=== PATIENT | female | born 1940 | race Caucasian/White ===

== ENCOUNTER 2022-12-24 08:06 | Outpatient (OUT) | payer MEDICARE, SELFPAY ==
[2022-12-24 08:59] LABS: Basophils Absolute Auto 0.1 10^3/uL (0.0-0.1); Basophils Percent Auto 0.7 % (0.2-2.0); Eosinophils Absolute Auto 0.3 10^3/uL (0.0-0.7); Eosinophils Percent Auto 3.8 % (0.9-7.0); Hematocrit 30.1 % (36.0-48.0); Hemoglobin 9.9 g/dL (12.0-16.0); Immature Granulocytes Abs Auto 0.02 10^3/uL (0.00-0.03); Immature Granulocytes Pct Auto 0.3 % (0.0-0.5); Mean Corpuscular HGB Conc 32.9 g/dL (29.9-35.2); Mean Corpuscular Hemoglobin 30.7 pg (26.7-34.0); Mean Corpuscular Volume 93.2 fL (81.0-99.0); Mean Platelet Volume 10.2 fL (9.5-13.5); Monocytes Absolute Auto 0.6 10^3/uL (0.3-0.8); Monocytes Percent Auto 8.6 % (1.7-12.0); Neutrophils Absolute Auto 4.2 10^3/uL (1.4-6.5); Neutrophils Percent Auto 58.6 % (43.0-75.0); Platelet Count 249 10^3/uL (150-450); Red Blood Count 3.23 10^6/uL (4.20-5.40); Red Cell Distribution Width 14.4 % (11.0-15.0); White Blood Count 7.2 10^3/uL (4.0-11.0)
[2022-12-24 09:31] LABS: Alanine Aminotransferase 24 U/L (14-59); Albumin Globulin Ratio 0.6; Albumin Level 2.4 g/dL (3.4-5.0); Alkaline Phosphatase 43 U/L (46-116); Anion Gap 9.9; Aspartate Amino Transferase 26 U/L (15-37); BUN Creatinine Ratio 11.3; Bilirubin Direct 0.1 mg/dL (0.0-0.2); Bilirubin Total 0.3 mg/dL (0.2-1.0); Calcium 8.5 mg/dL (8.5-10.1); Chloride 105 mmol/L (98-107); Chol HDL Ratio 3.6; Cholesterol 162 mg/dL (<=200); Estimated GFR (African America 19 (>=60); Estimated GFR (Non-African Ame 16 (>=60); Globulin 4.2 g/dL; Glucose 124 mg/dL (74-106); HDL Cholesterol 45 mg/dL (40-60); Potassium 3.9 mmol/L (3.5-5.1); Sodium 139 mmol/L (136-145); Total Protein 6.6 g/dL (6.4-8.2); Triglycerides 211 mg/dL (<=150); VLDL CHOLESTEROL 42.2 mg/dL
[2022-12-24 09:43] LABS: Estimated Average Glucose 166 mg/dL; Glycohemoglobin A1C 7.4 % (4.5-6.2)
== END 2022-12-24 08:07 | disposition home or self-care (01) ==
LOC: LAB 08:12
PROVIDERS: PCP Family Medicine; Visit Provider Family Medicine
DX: Z79.899 Other long term (current) drug therapy (principal); E11.65 Type 2 diabetes mellitus with hyperglycemia; E78.5 Hyperlipidemia, unspecified; E11.22 Type 2 diabetes mellitus with diabetic chronic kidney disease; N18.31 Chronic kidney disease, stage 3a
CPT/HCPCS: 36415; 80048; 80061; 80076; 82306; 83036; 85025

== ENCOUNTER 2023-01-01 12:49 | Outpatient (OUT) | payer MEDICARE, SELFPAY ==
--- NOTE | 2023-01-01 13:30 | CA_ITS ---
Patient: MENDOZA BERGER Exam Date: 01/01/2023 : 1940 Gender:F Ordering : DR Magdy Cornelius . Admission #: [id number] Family : Order #: [id number] CLICK HERE TO VIEW EXAM ECHOCARDIOGRAM REPORT PROCEDURE: CA ECHO DOPPLER COMPLETE INDICATIONS: Dyspnea, edema, diabetes COMPARISON: None. DESCRIPTION: COMPLETE ECHOCARDIOGRAM Real-time transthoracic echocardiography with 2D, M-mode, spectral and color flow Doppler performed. QUALITY: Technical quality was limited. LEFT VENTRICLE: Normal chamber size. Thickened septal wall. Systolic function is at the lower limits of normal. LV EF: Lower limits of normal left ventricular ejection fraction, (50%). DIASTOLIC: Grade I diastolic dysfunction. ATRIAL SEPTUM: Visually appears intact. LEFT ATRIUM: Moderate dilatation. RIGHT ATRIUM: Normal chamber size. RIGHT VENTRICLE: Normal chamber size. Normal right ventricular systolic function. TRICUSPID VALVE: Normal mobility and thickness. No stenosis with trivial regurgitation. No evidence of pulmonary hypertension. RVSP 25 mmHg MITRAL VALVE: Mildly thickened with normal mobility. No evidence of mitral valve stenosis. Mild mitral annular calcification. Mild mitral regurgitation. AORTIC VALVE: Mildly calcified aortic valve. Normal leaflet mobility. Doppler velocity suggest no significant aortic valve stenosis. No aortic regurgitation. AORTIC ROOT: Normal diameter and appearance. PULMONIC VALVE: Not well visualized. No stenosis. No regurgitation. PERICARDIUM: No evidence of pericardial effusion. IVC: Collapses with inspirations. PLEURA: CONCLUSION: 1. Left ventricular systolic function is at the lower limits of normal. LVEF is 50%. 2. Mild diastolic dysfunction. 3. Normal right ventricular size and systolic function. 4. Moderately dilated left atrium. 5. Mild mitral regurgitation. 6. Normal right-sided pressures. Adult Echocardiography Procedure Report Left Ventricle LVEDD (3.7 - 5.6 cm): 4.39 cm LVESD (2.2 - 4.0 cm): 3.33 cm LVIVS thickness (0.6 - 1.2 cm): 1.08 cm LVPW thickness (0.5 - 1.0 cm): 0.94 cm e': 0.07 m/s E - e': 11.11 LVOT Max Gradient: 2.96 mm[Hg], 2.73 mm[Hg] LVOT Area (cm2): 0.84 m/s Peak Velocity (LVOT): 0.86 m/s, 0.83 m/s Mean Velocity (LVOT): 0.58 m/s LVOT Diameter 1.89 cm Left Atrium LA Volume Index (2D A2C): 42.05 ml/m2 Left Atrium Systolic Dimension: 3.49 cm Mitral Valve MV E to A Ratio: 0.52 Mitral Valve A-Wave Peak Velocity: 1.48 m/s Mitral Valve E-Wave Peak Velocity: 0.77 m/s Right Ventricle Aorta AO Root Diam: 3.09 cm Ascending Ao Diam: 2.59 cm Aortic Valve AoV Area (Peak Dangelo): 1.76 cm2, 1.79 cm2 AoV Area (VTI): 1.91 cm2, 1.93 cm2 Peak Velocity(Antegrade Flow): 1.35 m/s Peak Gradient(Antegrade Flow): 7.25 mm[Hg] Mean Velocity(Antegrade Flow): 0.98 m/s Mean Gradient(Antegrade Flow): 4.21 mm[Hg] Velocity Time Integral: 24.08 cm Tricuspid Valve Peak Velocity (Regurgitant Flow): 2.34 m/s Pulmonic Valve Peak Velocity: 0.96 m/s Peak Gradient: 4.18 mm[Hg], 3.28 mm[Hg] Right Atrium Right Atrium Systolic Pressure: 29.94 ml, 29.94 ml Dictated by: Cam Gross M.D. on 01/01/2023 at 14:42 Approved by: Cam Gross M.D. on 01/01/2023 at 14:48
== END 2023-01-01 12:50 | disposition home or self-care (01) ==
LOC: CARD 12:49
PROVIDERS: PCP Family Medicine; Visit Provider Family Medicine
DX: R60.0 Localized edema (principal); R06.02 Shortness of breath; E11.9 Type 2 diabetes mellitus without complications
CPT/HCPCS: 93306

== ENCOUNTER 2023-03-17 08:50 | Emergency (ER) | payer MEDICARE, SELFPAY ==
--- NOTE | 2023-03-17 09:16 | ED.GENADUL1 ---
HPI - General Adult General Chief complaint: Cardiac Arrest/CPR Stated complaint: FULL ARREST Time Seen by Provider: 03/17/23 08:51 History of Present Illness HPI narrative: brought in by EMS who were called for SOB. Apparently the patient had not been feeling well for a couple of days . When EMS arrived they found the patient profoundly short of breath. They started an IV, gave the patient IV Solumedrol and placed the patient on CPAP. She was tachypneic and anxious so they gave Versed 1mg IV. Shortly thereafter the patient became unconscious. They could not detect a pulse so they began bagging the patient and applied CPR pads and initiated CPR. On arrival, the patient was without pulse or spontaneous respirations and was unresponsive. Related Data Allergies Allergy/AdvReac Type Severity Reaction Status Date / Time Unable to Assess Allergy Verified 03/17/23 09:47 Exam Narrative Exam Narrative: Nurses notes and vital signs reviewed and patient is not hypoxic. General: Unresponsive. Skin: cool and pale. Head: Normocephalic, atraumatic. Eye: Pupils are fixed and dilated Ears, Nose, Mouth, and Throat: blood in the airway with frothy clear liquid requiring extensive suctioning Cardiovascular: no pulse. Respiratory: No or spontaneous respirations. Crackles and wet sounds heard on auscultation while RT is bagging the patient Chest Wall: no external sign of injury Back: No external sign of injury Musculoskeletal: no lower extremity edema/swelling GI: Abdomen is soft, moderately distended. Neurological: no spontaneous movement or response to painful stimuli Psychiatric: unconscious Medical Decision Making MDM Narrative Medical decision making narrative: patient was placed on our CPR monitor and CPR was continued. She was given IV epinephrine I intubated the patient. We continued CPR and gave 4 additional rounds of epi. patient alternated between asystole and PEA without ROSC. we were never able to retain spontaneous return of circulation. I spoke with Dr Cornelius and he will sign the certificate. This is not a director of safety and security's case Patient's 2 sons and daughter informed and they notified the rest of the family. Patient's body released to the home of the family's choice. Discharge Plan Discharge Patient Disposition: Date/Time: 03/17/23 09:13 Discharge Date/Time: 03/17/23 09:46 Probable Cause of Probable Cause of : Pulmonary edema
[2023-03-17 09:46] VITALS: BMI 28.3
== END 2023-03-17 09:46 | disposition expired ==
PROVIDERS: Emergency Provider Emergency Medicine; PCP Family Medicine
DX: I46.9 Cardiac arrest, cause unspecified (principal)
CPT/HCPCS: 31500; 31720; 92950; 99291